=== PATIENT | male | born 1960 | race Caucasian/White ===

== ENCOUNTER 2022-05-03 10:44 | Emergency (ER) | payer MEDICARE, OTHER ==
[~2022-05-03] VITALS: Ht 177.8 cm; Wt 102.1 kg
[2022-05-03 12:15] LABS: RED BLOOD COUNT 5.08 M/UL (4.20-5.50); WHITE BLOOD COUNT 19.8 K/UL (4.5-11.0)
[2022-05-03] MEDS ORDERED: DOVATO 50-3001 EACH PO (13:55)
[2022-05-03] MEDS ORDERED: FUROSEMIDE40 MG PO (13:56)
[2022-05-03] MEDS ORDERED: ACYCLOVIR400 MG PO (13:56)
[2022-05-03] MEDS ORDERED: ANASTROZOLE1 MG PO (13:57)
[2022-05-03] MEDS ORDERED: POTASSIUM CHLO20 ME2 PO (13:57)
[2022-05-03] MEDS ORDERED: AMIODARONE HCL200 MG PO (13:57)
[2022-05-03] MEDS ORDERED: VITAMIN D21250 MCG PO (13:57)
[2022-05-03] MEDS ORDERED: ATORVASTATIN CA40 MG PO (13:58)
[2022-05-03] MEDS ORDERED: METOPROLOL TART25 MG PO (14:15)
[2022-05-03] MEDS ORDERED: FLOMAX 0.4 MG0.4 MG PO (14:16)
[2022-05-04 10:54] LABS: ESCHERICHIA COLI Not Detected (Negative); KPC-CARBAPENEM-RESISTANCE GENE Not Detected (Negative); STREP AGALACTIAE (GROUP B) Not Detected (Negative); STREP PYOGENES (GROUP A) Not Detected (Negative); STREPTOCOCCUS Not Detected (Negative); vanA/B (VANCOMYCIN RESIST GENE Not Detected (Negative)
[2022-05-04 10:55] LABS: CANDIDA ALBICANS Not Detected (Negative); CANDIDA KRUSEI Not Detected (Negative); CANDIDA TROPICALIS Not Detected (Negative); HAEMOPHILUS INFLUENZAE Not Detected (Negative); KLEBSIELLA OXYTOCA Not Detected (Negative); KLEBSIELLA PNEUMONIAE Not Detected (Negative); PROTEUS Not Detected (Negative); PSEUDOMONAS AERUGINOSA Not Detected (Negative); SERRATIA MARCESANS Not Detected (Negative)
[2022-05-04 12:10] LABS: STAPHYLOCOCCUS DETECTED (Negative); STAPHYLOCOCCUS AUREUS DETECTED (Negative)
[2022-05-05 14:13] LABS: % CD 4 POS. LYMPH. 15.2 % (30.8-58.5); ABSOLUTE CD 4 HELPER 198 /uL (359-1519); BASOS 0 % (Not Estab.); EOS 0 % (Not Estab.); HEMATOCRIT 45.9 % (37.5-51.0); HEMOGLOBIN 15.1 g/dL (13.0-17.7); IMMATURE GRANS (ABS) 0.1 x10E3/uL (0.0-0.1); IMMATURE GRANULOCYTES 1 % (Not Estab.); LYMPHS 8 % (Not Estab.); LYMPHS (ABSOLUTE) 1.3 x10E3/uL (0.7-3.1); MCH 30.3 pg (26.6-33.0); MCHC 32.9 g/dL (31.5-35.7); MCV 92 fL (79-97); MONOCYTES 7 % (Not Estab.); MONOCYTES(ABSOLUTE) 1.2 x10E3/uL (0.1-0.9); NEUTROPHILS 84 % (Not Estab.); NEUTROPHILS (ABSOLUTE) 13.6 x10E3/uL (1.4-7.0); PLATELETS 159 x10E3/uL (150-450); RBC 4.99 x10E6/uL (4.14-5.80); RDW 12.9 % (11.6-15.4); WBC 16.2 x10E3/uL (3.4-10.8)
[2022-05-05 20:13] LABS: HIV-1 RNA BY PCR <20 (.)
[2022-05-06 18:12] LABS: MYCOPLASMA PNEUMONIAE, IGG AB <100 U/mL (0-99); MYCOPLASMA PNEUMONIAE, IGM AB <770 U/mL (0-769)
[2022-05-07 00:07] LABS: LEGIONELLA PNEUMOPHILA ABS. <0.91 OD ratio (0.00-0.90)
[2022-05-07 08:14] LABS: CMV QUANT DNA PCR (PLASMA) Negative (Negative)
== END 2022-05-03 17:15 | disposition other institution (70) ==
LOC: ER1 10:44 → CDU 13:27 → ER1 13:27
PROVIDERS: Emergency Medicine; Internal Medicine
DX: A41.9 Sepsis, unspecified organism (principal); R65.20 Severe sepsis without septic shock; J18.9 Pneumonia, unspecified organism; N17.9 Acute kidney failure, unspecified; Z21 Asymptomatic human immunodeficiency virus [HIV] infection status; R73.02 Impaired glucose tolerance (oral); I10 Essential (primary) hypertension; Z20.822 Contact with and (suspected) exposure to COVID-19
CPT/HCPCS: 71045; 71250; 80053; 81001; 83605; 83735; 84100; 85025; 86361; 86713; 86738; 86778; 87040; 87077; 87086; 87150; 87186; 87497; 87536; 96374; 96375; 99285; J0456; J0696; J2185; J3370; J7070; Q9967; U0002

== ENCOUNTER → 2022-05-15 | Outpatient (CLI) | payer MEDICARE, OTHER ==
[~2022-05-15] VITALS: Ht 177.8 cm; Wt 102.1 kg
[~2022-05-15] MED LIST: ACYCLOVIR400 MG PO; AMIODARONE HCL200 MG PO; ANASTROZOLE1 MG PO; ATORVASTATIN CA40 MG PO; DOVATO 50-3001 EACH PO; FLOMAX 0.4 MG0.4 MG PO; FUROSEMIDE40 MG PO; METOPROLOL TART25 MG PO; POTASSIUM CHLO20 ME2 PO; VITAMIN D21250 MCG PO
== END ==
LOC: OPSV 07:00
DX: J18.9 Pneumonia, unspecified organism (principal)
CPT/HCPCS: 96365; J0696

== ENCOUNTER → 2022-05-16 | Outpatient (CLI) | payer MEDICARE, OTHER | LOC: OPSV 07:00 | DX: J18.9 Pneumonia, unspecified organism (principal) | CPT/HCPCS: 96365; J0696 ==

== ENCOUNTER → 2022-05-17 | Outpatient (CLI) | payer MEDICARE, OTHER ==
[~2022-05-17] VITALS: Ht 177.8 cm; Wt 102.1 kg
== END ==
LOC: OPSV 06:46
DX: J18.9 Pneumonia, unspecified organism (principal)
CPT/HCPCS: 96365; J0696

== ENCOUNTER → 2022-05-18 | Outpatient (CLI) | payer MEDICARE, OTHER ==
[~2022-05-18] VITALS: Ht 177.8 cm; Wt 102.1 kg
== END ==
LOC: OPSV 06:39
DX: J18.9 Pneumonia, unspecified organism (principal)
CPT/HCPCS: 96365; J0696

== ENCOUNTER → 2022-05-19 | Outpatient (CLI) | payer MEDICARE, OTHER | LOC: OPSV 09:00 | DX: J18.9 Pneumonia, unspecified organism (principal) | CPT/HCPCS: 96365; J0696 ==

== ENCOUNTER → 2022-05-20 | Outpatient (CLI) | payer MEDICARE, OTHER ==
[~2022-05-20] VITALS: Ht 177.8 cm; Wt 102.1 kg
== END ==
LOC: OPSV 09:00
DX: J18.9 Pneumonia, unspecified organism (principal)
CPT/HCPCS: 96365; J0696

== ENCOUNTER 2022-05-21 10:44 | Emergency (ER) | payer MEDICARE, OTHER ==
[2022-05-21 12:42] LABS: RED BLOOD COUNT 3.93 M/UL (4.20-5.50)
== END 2022-05-21 15:45 | disposition home or self-care (01) ==
LOC: ER1 10:44
PROVIDERS: Family Medicine
DX: R55 Syncope and collapse (principal); R42 Dizziness and giddiness; J32.0 Chronic maxillary sinusitis; N17.9 Acute kidney failure, unspecified; E86.0 Dehydration; E11.9 Type 2 diabetes mellitus without complications; Z21 Asymptomatic human immunodeficiency virus [HIV] infection status; Z90.49 Acquired absence of other specified parts of digestive tract; Z90.89 Acquired absence of other organs; Z79.899 Other long term (current) drug therapy; Z93.3 Colostomy status
CPT/HCPCS: 70450; 71045; 80053; 82550; 82553; 84484; 85025; 85652; 86140; 93005; 99284

== ENCOUNTER → 2022-05-21 | Outpatient (CLI) | payer MEDICARE, OTHER ==
[~2022-05-21] VITALS: Ht 177.8 cm; Wt 102.1 kg
== END ==
LOC: OPSV 09:00
DX: J18.9 Pneumonia, unspecified organism (principal)
CPT/HCPCS: 96365; J0696

== ENCOUNTER → 2022-05-22 | Outpatient (CLI) | payer MEDICARE, OTHER ==
[~2022-05-22] VITALS: Ht 177.8 cm; Wt 102.1 kg
== END ==
LOC: OPSV 09:00
DX: J18.9 Pneumonia, unspecified organism (principal)
CPT/HCPCS: 96365; J0696

== ENCOUNTER → 2022-05-23 | Outpatient (CLI) | payer MEDICARE, OTHER | LOC: OPSV 07:00 | DX: J18.9 Pneumonia, unspecified organism (principal) | CPT/HCPCS: 96365; J0696 ==

== ENCOUNTER → 2022-05-24 | Outpatient (CLI) | payer MEDICARE, OTHER ==
[~2022-05-24] VITALS: Ht 177.8 cm; Wt 102.1 kg
== END ==
LOC: OPSV 06:49
DX: J18.9 Pneumonia, unspecified organism (principal)
CPT/HCPCS: 96365; J0696

== ENCOUNTER → 2022-05-25 | Outpatient (CLI) | payer MEDICARE, OTHER ==
[~2022-05-25] VITALS: Ht 177.8 cm; Wt 102.1 kg
== END ==
LOC: OPSV 09:00
DX: J18.9 Pneumonia, unspecified organism (principal)
CPT/HCPCS: 96365; J0696

== ENCOUNTER → 2022-05-26 | Outpatient (CLI) | payer MEDICARE, OTHER ==
[~2022-05-26] VITALS: Ht 177.8 cm; Wt 102.1 kg
== END ==
LOC: OPSV 09:00
DX: J18.9 Pneumonia, unspecified organism (principal)
CPT/HCPCS: 96365; J0696

== ENCOUNTER → 2022-05-27 | Outpatient (CLI) | payer MEDICARE, OTHER ==
[~2022-05-27] VITALS: Ht 177.8 cm; Wt 102.1 kg
[~2022-05-27] MED LIST changes: +CYCLOBENZAPRINE10 MG PO; +ULTRAM50 MG PO
== END ==
LOC: OPSV 07:38
DX: J18.9 Pneumonia, unspecified organism (principal)
CPT/HCPCS: 96365; J0696

== ENCOUNTER → 2022-05-28 | Outpatient (CLI) | payer MEDICARE, OTHER ==
[~2022-05-28] VITALS: Ht 177.8 cm; Wt 102.1 kg
[2022-05-28 09:55] LABS: HEMOGLOBIN 11.9 gm/dl (14.0-17.5); RED BLOOD COUNT 3.9 M/UL (4.20-5.50); WHITE BLOOD COUNT 6.4 K/UL (4.5-11.0)
[2022-05-28 10:18] LABS: BUN/CREATININE RATIO 20 (0-10)
== END ==
LOC: OPSV 09:00
PROVIDERS: Internal Medicine Infectious Disease
DX: J18.9 Pneumonia, unspecified organism (principal)
CPT/HCPCS: 80053; 85025; 85652; 86140; 96365; J0696

== ENCOUNTER → 2022-05-30 | Outpatient (CLI) | payer MEDICARE, OTHER ==
[~2022-05-30] VITALS: Ht 177.8 cm; Wt 101.4 kg
== END ==
LOC: OPSV 06:58
DX: J18.9 Pneumonia, unspecified organism (principal)
CPT/HCPCS: 96365

== ENCOUNTER 2022-05-31 01:08 | Emergency (ER) | payer MEDICARE, OTHER ==
[~2022-05-31 01:08] MED LIST changes: -CYCLOBENZAPRINE10 MG PO; -ULTRAM50 MG PO
[2022-05-31] MEDS ORDERED: CYCLOBENZAPRINE10 MG PO (02:37)
[2022-05-31] MEDS ORDERED: ULTRAM50 MG PO (02:37)
== END 2022-05-31 02:55 | disposition home or self-care (01) ==
LOC: ER1 01:08
DX: M54.16 Radiculopathy, lumbar region (principal)
CPT/HCPCS: 99283; J0696

== ENCOUNTER → 2022-05-31 | Outpatient (CLI) | payer MEDICARE, OTHER | LOC: EROP 06:49 → OPSV 07:00 | DX: J18.9 Pneumonia, unspecified organism (principal) | CPT/HCPCS: 96365; J0696 ==

== ENCOUNTER → 2022-06-01 | Outpatient (CLI) | payer MEDICARE, OTHER ==
[~2022-06-01] MED LIST changes: +CYCLOBENZAPRINE10 MG PO; +ULTRAM50 MG PO
== END ==
LOC: OPSV 08:01
DX: J18.9 Pneumonia, unspecified organism (principal)
CPT/HCPCS: 96365; J0696

== ENCOUNTER → 2022-06-02 | Outpatient (CLI) | payer MEDICARE, OTHER ==
[~2022-06-02] VITALS: Ht 177.8 cm; Wt 102.1 kg
== END ==
LOC: OPSV 07:55
DX: J18.9 Pneumonia, unspecified organism (principal)
CPT/HCPCS: 96365; J0696

== ENCOUNTER → 2022-06-03 | Outpatient (CLI) | payer MEDICARE, OTHER ==
[~2022-06-03] VITALS: Ht 177.8 cm; Wt 102.1 kg
== END ==
LOC: OPSV 08:34
DX: J18.9 Pneumonia, unspecified organism (principal)
CPT/HCPCS: 96365; J0696

== ENCOUNTER → 2022-06-04 | Outpatient (CLI) | payer MEDICARE, OTHER ==
[~2022-06-04] VITALS: Ht 177.8 cm; Wt 102.1 kg
== END ==
LOC: OPSV 08:16
DX: J18.9 Pneumonia, unspecified organism (principal)
CPT/HCPCS: 96365; J0696

== ENCOUNTER → 2022-06-05 | Outpatient (CLI) | payer MEDICARE, OTHER ==
[2022-06-05 09:40] LABS: HEMOGLOBIN 12.6 gm/dl (14.0-17.5); RED BLOOD COUNT 4.12 M/UL (4.20-5.50); WHITE BLOOD COUNT 8.3 K/UL (4.5-11.0)
[2022-06-05 10:09] LABS: BUN/CREATININE RATIO 23 (0-10)
== END ==
LOC: OPSV 08:56
PROVIDERS: Internal Medicine Infectious Disease
DX: J18.9 Pneumonia, unspecified organism (principal)
CPT/HCPCS: 80053; 85025; 85652; 86140; 96365; J0696

== ENCOUNTER → 2022-06-06 | Outpatient (CLI) | payer MEDICARE, OTHER | LOC: OPSV 06:46 → EROP 06:46 → OPSV 07:00 | DX: J18.9 Pneumonia, unspecified organism (principal) | CPT/HCPCS: 96365; J0696 ==

== ENCOUNTER → 2022-06-07 | Outpatient (CLI) | payer MEDICARE, OTHER | LOC: EROP 06:54 → OPSV 07:00 | DX: J18.9 Pneumonia, unspecified organism (principal) | CPT/HCPCS: 96365; J0696 ==

== ENCOUNTER → 2022-06-08 | Outpatient (CLI) | payer MEDICARE, OTHER ==
[~2022-06-08] VITALS: Ht 177.8 cm; Wt 102.1 kg
== END ==
LOC: OPSV 08:54
DX: J18.9 Pneumonia, unspecified organism (principal)
CPT/HCPCS: 96365; J0696

== ENCOUNTER → 2022-06-09 | Outpatient (CLI) | payer MEDICARE, OTHER | LOC: OPSV 08:43 | DX: J18.9 Pneumonia, unspecified organism (principal) | CPT/HCPCS: 96365; J0696 ==

== ENCOUNTER → 2022-06-10 | Outpatient (CLI) | payer MEDICARE, OTHER ==
[~2022-06-10] VITALS: Ht 177.8 cm; Wt 102.1 kg
== END ==
LOC: OPSV 09:00
DX: J18.9 Pneumonia, unspecified organism (principal)
CPT/HCPCS: 96365; J0696

== ENCOUNTER → 2022-06-11 | Outpatient (CLI) | payer MEDICARE, OTHER ==
[~2022-06-11] VITALS: Ht 177.8 cm; Wt 102.1 kg
== END ==
LOC: OPSV 09:00
DX: J18.9 Pneumonia, unspecified organism (principal)
CPT/HCPCS: 96365; J0696